=== PATIENT | female | born 1975 | race African-American/Black ===

== ENCOUNTER 2020-05-05 20:38 | Emergency (ER) | payer BC, OTHER ==
[~2020-05-05] VITALS: Ht 177.8 cm; Wt 95.0 kg
[2020-05-05] MEDS ORDERED: MORPHINE SULFATE 4 MG/ML CPJ (NOT FOR IM USE) IV STA (22:43)
[2020-05-05] MEDS ORDERED: ONDANSETRON HCL 4MG/2ML INJ IV STA (22:43)
[2020-05-05] MEDS ORDERED: SODIUM CHLORIDE 0.9% 1,000 ML IV ONE (22:43)
[2020-05-05] MEDS ORDERED: OXYCODONE HCL/ACETAMINOPHEN 5/325MG TABLET PO ONE (22:45)
[2020-05-05 23:26] LABS: CHLORIDE 105 mEq/L (98-107)
[2020-05-05 23:32] LABS: BASOPHILS % 0.6 % (0.0-2.0); EOSINOPHILS % 1.8 % (0.0-5.0); HEMATOCRIT. 40.9 % (36.0-48.0); HEMOGLOBIN. 13.5 g/dL (12.0-16.0); LYMPHOCYTES % 19.3 % (20.0-50.0); MEAN CORPUSCULAR HEMOGLOBIN 32.6 pg (28.0-32.0); MEAN CORPUSCULAR VOLUME 98.9 fL (81.0-99.0); MEAN PLATELET VOLUME 10.1 fl (7.4-10.4); NEUTROPHILS % 70.3 % (40.0-76.0); PLATELET 219 x1000/uL (130-400); RED BLOOD CELL COUNT 4.14 mill/uL (4.2-5.4); RED CELL DISTRIBUTION WIDTH 13.5 % (11.6-14.6)
[2020-05-06] MEDS ORDERED: ONDANSETRON HCL 4MG/2ML INJ IV ONE
[2020-05-06] MEDS ORDERED: KETAMINE HCL 50 MG/ML 10ML IV ONE
[2020-05-06 01:38] VITALS: BP 136/74
== END 2020-05-06 02:45 | disposition home or self-care (01) ==
LOC: ER 20:38
DX: S43.084A Other dislocation of right shoulder joint, initial encounter (principal); W01.0XXA Fall on same level from slipping, tripping and stumbling without subsequent striking against object, initial encounter; Y93.89 Activity, other specified; Y92.89 Other specified places as the place of occurrence of the external cause; Y99.8 Other external cause status; J45.909 Unspecified asthma, uncomplicated; I10 Essential (primary) hypertension
CPT/HCPCS: 23650; 36415; 73030; 73060; 80048; 85025; 93005; 96374; 96375; 99152; 99285; J2270; J2405; J3490; J7030; L3670